=== PATIENT | male | born 1995 | race Native Hawaiian/Other Pacific Islander ===

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

== ENCOUNTER 2019-07-31 12:14 | Outpatient (CLI) | payer OTHER | END 2019-07-31 20:44 | disposition home or self-care (01) | LOC: RAD 12:14 | DX: M54.5 Low back pain (principal) ==

== ENCOUNTER 2020-12-29 15:58 | Outpatient (CLI) | payer OTHER | END 2020-12-29 20:34 | disposition home or self-care (01) | LOC: INF 15:58 | PROVIDERS: ATTEND Internal Medicine | DX: Z23 Encounter for immunization (principal) | CPT/HCPCS: 96372 ==

== ENCOUNTER 2021-01-20 15:57 | Outpatient (CLI) | payer OTHER | END 2021-01-20 20:42 | disposition home or self-care (01) | LOC: INF | PROVIDERS: ATTEND Internal Medicine | DX: Z23 Encounter for immunization (principal) | CPT/HCPCS: 96372 ==